=== PATIENT | female | born 2000 | race Caucasian/White ===

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

== ENCOUNTER 2018-03-18 07:29 | Emergency (ER) | payer BC ==
[2018-03-18 07:43] VITALS: BP 117/59
--- NOTE | 2018-03-18 08:29 | UC ---
Respiratory Complaint HPI - HPI Summary HPI Summary: 18 yo c/o productive cough with yellow green secretions, fatigue and muscle aches that started 1 week ago. Denies any fever. - History of Current Complaint Chief Complaint: UCRespiratory Stated Complaint: COUGH Time Seen by Provider: 03/18/18 08:22 Hx Last Menstrual Period: 03/13/18 Pain Intensity: 2 - Allergies/Home Medications Allergies/Adverse Reactions: Allergies Allergy/AdvReac Type Severity Reaction Status Date / Time amoxicillin Allergy Rash Verified 03/18/18 07:38 gluten Allergy GI Upset Verified 03/18/18 07:38 Home Medications: Home Medications Dm/PE/Acetaminophen/Doxylamine [COLD & FLU MULTI-SYMPTOM (Liquid)] 1 mis PO BEDTIME PRN 03/18/18 [History Confirmed 03/18/18] PMH/Surg Hx/FS Hx/Imm Hx - Additional Past Medical History Additional PMH: ADHD - Surgical History Surgical History: Yes Surgery Procedure, Year, and Place: Right Ovary Torsion, 2011 2013 - Family History Known Family History: Positive: Cardiac Disease - Social History Alcohol Use: None Substance Use Type: None Smoking Status (MU): Never Smoked Tobacco - Immunization History Most Recent Influenza Vaccination: Not the Season Review of Systems All Other Systems Reviewed And Are Negative: Yes Constitutional: Positive: Chills ENT: Positive: Nasal Discharge, Sinus Congestion Respiratory: Positive: Cough Physical Exam Triage Information Reviewed: Yes Appearance: Well-Appearing, No Pain Distress, Well-Nourished Vital Signs: Initial Vital Signs Temp 98.2 F 03/18/18 07:40 Pulse 72 03/18/18 07:40 Resp 16 03/18/18 07:40 BP 117/59 03/18/18 07:40 Pulse Ox 100 03/18/18 07:40 Vital Signs Reviewed: Yes Eyes: Positive: Conjunctiva Clear ENT: Positive: Hearing grossly normal, Pharynx normal, TMs normal Neck: Positive: Supple, Nontender, No Lymphadenopathy Respiratory: Positive: Chest non-tender, Lungs clear, Normal breath sounds, No respiratory distress Cardiovascular: Positive: RRR, No Murmur, Pulses Normal, Brisk Capillary Refill Abdomen Description: Positive: Nontender Musculoskeletal: Positive: Strength Intact, ROM Intact, No Edema Neurological: Positive: Alert Psychological Exam: Normal Skin Exam: Normal UC Diagnostic Evaluation - Laboratory O2 Sat by Pulse Oximetry: 100 Respiratory Course/Dx - Course Course Of Treatment: 18 yo who has cough with yellow sputum for one week with rhonci in RLL, CXR was negative, viral URI. Standby zithromax prescribed if symptoms worsen within 48 hr. continue supportive care. f/u with PCP , referral given - Differential Dx/Diagnosis Provider Diagnoses: viral syndrome Discharge - Sign-Out/Discharge Documenting (check all that apply): Patient Departure All imaging exams completed and their final reports reviewed: Yes - Discharge Plan Condition: Stable Disposition: HOME Patient Education Materials: Viral Syndrome (ED), Azithromycin (By mouth) Referrals: No Primary Care Phys,NOPCP [Primary Care Provider] - [facility] [Outside] Additional Instructions: You have been prescribed an antibiotic as standby CUrrently you appear to have a viral infection which will clear on its own. If symptoms worsen, you develop a fever and cough continues with darkened sputum start the antibiotic - Billing Disposition and Condition Condition: STABLE Disposition: Home
== END 2018-03-18 09:34 | disposition home or self-care (01) ==
LOC: UCCORT 07:29
DX: B34.9 Viral infection, unspecified (principal); Z88.0 Allergy status to penicillin
CPT/HCPCS: 71046; 99212; G0463

== ENCOUNTER 2018-08-20 11:22 | Emergency (ER) | payer BC ==
[2018-08-20 11:51] VITALS: BP 126/63
--- NOTE | 2018-08-20 12:39 | UC ---
Throat Pain/Nasal Maikel HPI - HPI Summary HPI Summary: 18 year-old female who has had cold symptoms for approximately 3 days. She is also had diarrhea approximately 4 times in the past 24 hours. No recent travel outside the [place]. - History of Current Complaint Chief Complaint: UCGeneralIllness Stated Complaint: BILAT EAR CONCERN,CONGESTION Time Seen by Provider: 08/20/18 12:18 Hx Obtained From: Patient Hx Last Menstrual Period: nuvaring ?: No Onset/Duration: Gradual Onset Severity: Mild Pain Intensity: 3 Cough: Nonproductive Associated Signs & Symptoms: Positive: Nasal Discharge - Epiglottits Risk Factors Epiglottis Risk Factors: Negative - Allergies/Home Medications Allergies/Adverse Reactions: Allergies Allergy/AdvReac Type Severity Reaction Status Date / Time amoxicillin Allergy Rash Verified 08/20/18 11:41 gluten Allergy GI Upset Verified 08/20/18 11:41 Home Medications: Home Medications D-Methorphan/PE/Acetaminophen [Daytime Cold-Flu Relief Sftgl] 2 each PO Q6H PRN 08/20/18 [History Confirmed 08/20/18] Dm/Acetaminophen/Doxylamine [Nighttime Cold-Flu Rlf Sftgl] 1 each PO BEDTIME PRN 08/20/18 [History Confirmed 08/20/18] guaiFENesin [Mucinex] 600 mg PO Q12H PRN 08/20/18 [History Confirmed 08/20/18] PMH/Surg Hx/FS Hx/Imm Hx Previously Healthy: Yes - Surgical History Surgical History: Yes Surgery Procedure, Year, and Place: Right Ovary Torsion, 2011 2013 - Family History Known Family History: Positive: Cardiac Disease - Social History Occupation: Student Lives: Dormitory/Roommates Alcohol Use: Rare Substance Use Type: None Smoking Status (MU): Never Smoked Tobacco - Immunization History Most Recent Influenza Vaccination: Not the 2016/2016 Season Review of Systems All Other Systems Reviewed And Are Negative: Yes ENT: Positive: Nasal Discharge Respiratory: Positive: Cough - Nonproductive dry cough Gastrointestinal: Positive: Diarrhea - For bouts of diarrhea in the past 24 hours. Genitourinary: Positive: Negative Is Patient Immunocompromised?: No Physical Exam Triage Information Reviewed: Yes Appearance: Well-Appearing, No Pain Distress, Well-Nourished Vital Signs: Initial Vital Signs Temp 98.2 F 08/20/18 11:46 Pulse 65 08/20/18 11:46 Resp 18 08/20/18 11:46 BP 126/63 08/20/18 11:46 Pulse Ox 100 08/20/18 11:46 Vital Signs Reviewed: Yes Eye Exam: Normal ENT Exam: Normal Neck exam: Normal Respiratory Exam: Normal Cardiovascular Exam: Normal Abdominal Exam: Normal Abdomen Description: Positive: Nontender, No Organomegaly, Soft Bowel Sounds: Positive: Present Throat Pain/Nasal Course/Dx - Course Course Of Treatment: Patient is comfortable here. Her exam is consistent with a viral illness as well as upper respiratory infection. - Differential Dx/Diagnosis Provider Diagnosis: URI (upper respiratory infection) Discharge - Sign-Out/Discharge Documenting (check all that apply): Patient Departure All imaging exams completed and their final reports reviewed: No Studies - Discharge Plan Condition: Fair Disposition: HOME Patient Education Materials: Upper Respiratory Infection (DC), Acute Diarrhea ( ED) Forms: *School Release Referrals: No Primary Care Phys,NOPCP [Primary Care Provider] - SUSANA CASTILLO [[employer], [employer], OTHER] - Additional Instructions: Increase fluids, rest, purchase loperamide and take as directed for diarrhea. Follow-up at the [facility] if continued symptoms. - Billing Disposition and Condition Condition: FAIR Disposition: Home - Attestation Statements Provider Attestation: I was available for consult. This patient was seen by the MARY. The patient was not presented to, seen by, or examined by me. -Eldon
== END 2018-08-20 12:44 | disposition home or self-care (01) ==
LOC: UCCORT 11:22
DX: J06.9 Acute upper respiratory infection, unspecified (principal); Z88.3 Allergy status to other anti-infective agents
CPT/HCPCS: 99211; G0463

== ENCOUNTER 2019-02-19 08:06 | Emergency (ER) | payer BC ==
--- OUTSIDE RECORDS SUMMARY | 2019-02-19 08:24 | XMS REPORT | Continuity of Care Document ---
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 Problems Description No Information Available Social History Type Date Description Comments Sex Unknown Tobacco Use Start: Unknown Never Smoked Cigarettes Smoking Status Reviewed: 01/09/19 Never Smoked Cigarettes ETOH Use Occasionally consumed alcohol in the past Tobacco Use Start: Unknown Patient has never smoked Exercise Type/Frequency Exercises regularly Allergies, Adverse Reactions, Alerts Active Allergies Reaction Severity Comments Date Seasonal 01/09/2019 Amoxicillin 01/09/2019 Lactose 01/09/2019 Gluten 01/09/2019 Medications Active Medications SIG Qnty Indications Ordering Date Provider Methylphenidate HCL Take 1 tab by mouth Unknown 10mg in the afternoon Tablets for breakthrough ADHD symptoms [place] Thyroid take 5 tablets by Unknown 15mg Tablets mouth daily Methylphenidate Take 1 tab by mouth Unknown Hydrochloride CD in the morning. 20mg *when refill is Capsules ER needed around end of jan refill at 30mg to test a higher dose as discussed 01/09/19 pe* Proair Respiclick Inhale 2 Puffs Unknown Every 4 Hours as 108(90Base) mcg/Act Needed For Wheeze Aerosol Or Cough Immunizations CPT Code Status Date Vaccine Lot # [id number] Given 01/09/2019 Tdap injection [id number] U-MenB Given 04/29/2018 Meningococcal B,Unspecified U-Flu Given 04/29/2018 Influenza,Unspecified U-Flu Given 05/02/2017 Influenza,Unspecified U-Menin Given 12/28/2016 Meningococcal,Unspecified U-MenB Given 10/20/2015 Meningococcal B,Unspecified U-HPV Given 06/14/2015 HPV,Unspecified U-HPV Given 02/08/2015 HPV,Unspecified U-HPV Given 12/03/2014 HPV,Unspecified [id number] Given 12/18/2012 Varicella (Chicken Pox) Vaccine U-Flu Given 02/12/2012 Influenza,Unspecified U-HepA Given 12/15/2011 Hepatitis A,Unspecified U-Menin Given 11/28/2010 Meningococcal,Unspecified U-HepA Given 11/28/2010 Hepatitis A,Unspecified U-Flu Given 04/08/2010 Influenza,Unspecified U-Flu Given 03/17/2009 Influenza,Unspecified U-Td Given 02/02/2009 Td(Adult),Unspecified 57154 Given 12/29/2002 MMR Vaccine, Live, For Subcutaneous Use U-DTaP Given 02/06/2002 DTaP,Unspecified U-Polio Given 02/06/2002 Polio,Unspecified U-Polio Given 08/01/1999 Polio,Unspecified U-DTaP Given 08/01/1999 DTaP,Unspecified U-HIB Given 05/03/1999 Hib,Unspecified 10280 Given 05/03/1999 MMR Vaccine, Live, For Subcutaneous Use [id number] Given 01/31/1999 Varicella (Chicken Pox) Vaccine U-HepB Given 1998 Hepatitis B,Unspecified U-DTaP Given 1998 DTaP,Unspecified U-HIB Given 1998 Hib,Unspecified U-Polio Given 1998 Polio,Unspecified U-HIB Given 1998 Hib,Unspecified U-DTaP Given 1998 DTaP,Unspecified U-Polio Given 1998 Polio,Unspecified U-HIB Given 1998 Hib,Unspecified U-DTaP Given 1998 DTaP,Unspecified U-HepB Given 1998 Hepatitis B,Unspecified U-HepB Given 1998 Hepatitis B,Unspecified Vital Signs Date Vital Result Comment 01/09/2019 1:56pm BP Systolic 128 mmHg BP Diastolic 78 mmHg Body Temperature 98.4 F Heart Rate 84 /min Respiratory Rate 16 /min Height 69.75 inches 5'9.75" Weight 177.00 lb BMI (Body Mass Index) 25.6 kg/m2 BSA (Body Surface Area) 1.98 m2 [place] body weight in kilograms 68 kg O2 % BldC Oximetry 98 % Results Description No Information Available Procedures Description No Information Available Medical Devices Description No Information Available Encounters Description No Information Available Assessments Date Code Description Provider 01/09/2019 Z00.00 Encounter for general adult medical examination Renata Lomeli FNP without abnormal findings 01/09/2019 F90.0 Attention-deficit hyperactivity disorder, Renata Lomeli FNP predominantly inattentive type 01/09/2019 K90.0 Celiac disease Renata Lomeli FNP 01/09/2019 E03.9 Hypothyroidism, unspecified Renata Lomeli FNP 01/09/2019 Z23 Encounter for immunization Renata Lomeli FNP Plan of Treatment Future Appointment(s):02/13/2019 1:00 pm - Renata Lomeli FNP at [facility]01/09/2019 - Renata Lomeli FNPZ00.00 Encounter for general adult medical examination without abnormal findingsComments:My General Health Recommendations:1. One of the best things you can do for your health, heart, and cholesterol is to avoid added sugar. Why? Added sugars increase triglycerides. High triglycerides increase your risk of heart disease. This means avoiding soda, juice, alcohol, plus processed carbs like bagels, muffins, pastries, donuts, cake, cookies, white bread, desserts, crackers, pretzels, chips, candy, sweet coffee creamers. 2. Eat 5 cups of colorful and/or green leafy vegetables every day. I recommend half your plate be vegetables at each meal of the day.3. Cook your meals at home most of the time, instead of eating at a restaurant or eating fast food.4. Avoid using highly unhealthy oils like vegetable oil, canola oil, soybean oil and margarine. Instead, try to cook with olive oil, avocado oil or coconut oil. 5. Drink 1/2 your body weight in ounces of plain water daily, or at least 64 ounces. 6. Attempt to get at least 10,000 steps per day. Strength training a few times per week is also ideal. Getting in a walking routine of 30+ minutes per day is excellent for your heart, bones and longevity.7. Prioritize sleep: 7-8 hours per night is best for optimum health and recovery from internal and external stress.8. Check your skin regularly for moles that are asymmetrical, have an irregular border, are changing color, are getting bigger, are bleeding or scabbing, or are bigger than 6mm.9. Recommend 2 dentist visits per year for cleanings, as well as daily flossing and an eye exam every year.Follow up:yearly peF90.0 Attention-deficit hyperactivity disorder, predominantly inattentive typeComments:Continue on current dose.When you are due for a refill, please call this office.I will renew the extended release medicine at a higher dose - 30mg - and take this until your follow up with me. We can see how it's working and if we need to back off a bit.Call sooner if you have problems. ADDENDUMReceived NCAA Medical Exemption Reporting Form from patient to fill out. I was not her original health provider nor am I the provider who diagnosed her with ADHD. Therefore, we did not discuss alternate non-banned medication options for treatment. I am her current provider and am continuing her on ADHD medications.Follow up:4-6 weeks to address dose uslhexcQ51.0 Celiac xaidfamU88.9 Hypothyroidism, [id number] Encounter for immunizationComments:Tdap given today.Repeat every 10 years. Functional Status Description No Information Available Mental Status Description No Information Available Referrals Description No Information Available
[2019-02-19 08:26] VITALS: BP 128/63
--- NOTE | 2019-02-19 08:38 | UC ---
Throat Pain/Nasal Maikel HPI - HPI Summary HPI Summary: sore throat x 2 days pain is 2 out of 10 , worse with eating better with Tylenol + nasal congestion , cough , fever, chills, body aches and fatigue - History of Current Complaint Chief Complaint: UCGeneralIllness Stated Complaint: ST,FATIGUE,ACHES Time Seen by Provider: 02/19/19 08:24 Hx Obtained From: Patient Hx Last Menstrual Period: nuvaring Onset/Duration: Gradual Onset, Lasting Days - 2, Still Present Severity: Moderate Pain Intensity: 2 Cough: Nonproductive Associated Signs & Symptoms: Positive: Nasal Discharge, Fever. Negative: Dysphagia, Wheezing, Hoarseness, Sinus Discomfort, Vomiting, Rash - Allergies/Home Medications Allergies/Adverse Reactions: Allergies Allergy/AdvReac Type Severity Reaction Status Date / Time amoxicillin Allergy Rash Verified 02/19/19 08:26 gluten Allergy GI Upset Verified 02/19/19 08:26 PMH/Surg Hx/FS Hx/Imm Hx Previously Healthy: Yes - Surgical History Surgical History: Yes Surgery Procedure, Year, and Place: Right Ovary Torsion, 2011 2013 - Family History Known Family History: Positive: Cardiac Disease - Social History Alcohol Use: Rare Substance Use Type: None Smoking Status (MU): Never Smoked Tobacco - Immunization History Most Recent Influenza Vaccination: Not the 2015/2016 Season Review of Systems All Other Systems Reviewed And Are Negative: Yes Constitutional: Positive: Fever, Chills, Fatigue Skin: Positive: Negative Eyes: Positive: Negative ENT: Positive: Sore Throat, Nasal Discharge Respiratory: Positive: Cough Cardiovascular: Positive: Negative Musculoskeletal: Positive: Myalgia Is Patient Immunocompromised?: No Physical Exam Triage Information Reviewed: Yes Appearance: Well-Appearing, No Pain Distress, Well-Nourished Vital Signs: Initial Vital Signs Temp 98.1 F 02/19/19 08:23 Pulse 69 02/19/19 08:23 Resp 15 02/19/19 08:23 BP 128/63 02/19/19 08:23 Pulse Ox 100 02/19/19 08:23 Vital Signs Reviewed: Yes Eye Exam: Normal Eyes: Positive: Conjunctiva Clear ENT: Positive: Normal ENT inspection, Hearing grossly normal, Pharyngeal erythema, Nasal drainage, TMs normal Neck: Positive: Supple, Tenderness @, Enlarged Nodes @ Respiratory: Positive: Chest non-tender, Lungs clear, Normal breath sounds Cardiovascular: Positive: RRR, No Murmur, Pulses Normal Abdominal Exam: Normal Abdomen Description: Positive: Nontender, Soft. Negative: CVA Tenderness (R), CVA Tenderness (L), Distended, Guarding Bowel Sounds: Positive: Present Throat Pain/Nasal Course/Dx - Differential Dx/Diagnosis Provider Diagnosis: Pharyngitis Discharge ED - Sign-Out/Discharge Documenting (check all that apply): Patient Departure All imaging exams completed and their final reports reviewed: No Studies - Discharge Plan Condition: Stable Disposition: HOME Patient Education Materials: Pharyngitis (ED) Forms: *School Release Referrals: No Primary Care Phys,NOPCP [Primary Care Provider] - 5 Days Additional Instructions: please call the office tomorrow for the [place] results no sports until we know the results of [place] test - Billing Disposition and Condition Condition: STABLE Disposition: Home
[2019-02-20 13:17] LABS: EBV Capsid Ag IgG Ab Positive (Negative); EBV Capsid Ag IgM Ab Negative (Negative); Epstein-Barr Nuclear Antigen Positive (Negative)
--- NOTE | 2019-02-21 07:23 | UC ---
- Progress Note Progress Note: Lab results come back from February 19, 2019 Monospot negative EBV IgM negative. EBV IgG and AG positive. These results are consistent with past infection and not present infection. Is to call patient inform them of the results. If this is early in the illness there is a chance that the Monospot and IgM will become positive for the next week if symptoms persist. Therefore patient should continue to treat symptomatically and get reevaluated if worse or not improving. Course/Dx - Diagnoses Provider Diagnoses: Pharyngitis Discharge ED - Sign-Out/Discharge Documenting (check all that apply): Patient Departure All imaging exams completed and their final reports reviewed: No Studies - Discharge Plan Condition: Stable Disposition: HOME Patient Education Materials: Pharyngitis (ED) Forms: *School Release Referrals: No Primary Care Phys,NOPCP [Primary Care Provider] - 5 Days Additional Instructions: please call the office tomorrow for the [place] results no sports until we know the results of [place] test - Billing Disposition and Condition Condition: STABLE Disposition: Home
== END 2019-02-19 08:59 | disposition home or self-care (01) ==
LOC: UCCORT 08:06
DX: J02.9 Acute pharyngitis, unspecified (principal); M79.10 Myalgia, unspecified site; R53.83 Other fatigue; Z88.1 Allergy status to other antibiotic agents; Z88.8 Allergy status to other drugs, medicaments and biological substances
CPT/HCPCS: 36415; 86308; 86664; 86665; 87651; 99211; G0463

== ENCOUNTER 2019-03-22 08:55 | Emergency (ER) | payer BC ==
[2019-03-22 09:28] VITALS: BP 112/65
--- NOTE | 2019-03-22 11:22 | UC ---
Eye Complaint HPI - HPI Summary HPI Summary: YESTERDAY GRADUAL ONSET OF RIGHT EYE REDNESS, PURULENT DRAINAGE, IRRITATION AFTER A SWIM MEET. STARTING TO FEEL IT IN HER LEFT EYE TOO. WAS WEARING CONTACTS AT THE TIME BUT TOOK THEM OUT WHEN SX STARTED. - History of Current Complaint Chief Complaint: UCEye Stated Complaint: RIGHT EYE COMPLAINT Time Seen by Provider: 03/22/19 09:55 Hx Obtained From: Patient Hx Last Menstrual Period: 02/28/19 Onset/Duration: Gradual Onset, Lasting Days - 1 DAY, Still Present Timing: Constant Severity Initially: Moderate Severity Currently: Moderate Pain Intensity: 6 Pain Scale Used: 0-10 Numeric Location of Injury: Conjunctiva Aggravating Factor(s): Blinking Alleviating Factor(s): Nothing Associated Signs And Symptoms: Positive: Drainage (Purulent). Negative: Photophobia, Vision Impairment Bilateral - Allergies/Home Medications Allergies/Adverse Reactions: Allergies Allergy/AdvReac Type Severity Reaction Status Date / Time amoxicillin Allergy Rash Verified 03/22/19 09:26 gluten Allergy GI Upset Verified 03/22/19 09:26 PMH/Surg Hx/FS Hx/Imm Hx - Additional Past Medical History Additional PMH: CELIAC Endocrine History: Hypothyroidism - Surgical History Surgical History: Yes Surgery Procedure, Year, and Place: Right Ovary Torsion, 2011 2013 - Family History Known Family History: Positive: Cardiac Disease - Social History Alcohol Use: Rare Substance Use Type: None Smoking Status (MU): Never Smoked Tobacco - Immunization History Most Recent Influenza Vaccination: Not the 2015/2016 Season Review of Systems All Other Systems Reviewed And Are Negative: Yes Constitutional: Positive: Negative Eyes: Positive: Drainage, Eye Redness Respiratory: Positive: Negative Cardiovascular: Positive: Negative Gastrointestinal: Positive: Negative Physical Exam Triage Information Reviewed: Yes Appearance: Well-Appearing, No Pain Distress, Well-Nourished Vital Signs: Initial Vital Signs Temp 98.0 F 03/22/19 09:24 Pulse 67 03/22/19 09:24 Resp 13 03/22/19 09:24 BP 112/65 03/22/19 09:24 Pulse Ox 100 03/22/19 09:24 Vital Signs Reviewed: Yes Eyes: Positive: Conjunctiva Inflamed - RIGHT > LEFT, Discharge - PURULENT RIGHT EYE, Other: - PERRL, EOMI Neck: Positive: Supple Respiratory: Positive: No respiratory distress, No accessory muscle use Cardiovascular: Positive: Pulses Normal Abdomen Description: Positive: Soft Musculoskeletal: Positive: No Edema Neurological: Positive: Alert Psychological: Positive: Age Appropriate Behavior Skin: Negative: Rashes Eye Complaint Course/Dx - Differential Dx/Diagnosis Provider Diagnosis: Bilateral conjunctivitis Discharge ED - Sign-Out/Discharge Documenting (check all that apply): Patient Departure All imaging exams completed and their final reports reviewed: No Studies - Discharge Plan Condition: Stable Disposition: HOME Prescriptions: Ciprofloxacin 0.3% OPTH.JERRI* [Cipro 0.3% Opth*] 1 drop BOTH EYES Q4H #1 btl Patient Education Materials: Conjunctivitis (ED) Referrals: [facility] [Outside] - If Needed Additional Instructions: FOLLOW-UP WITH YOUR EYE DOCTOR IF YOUR SYMPTOMS ARE NOT IMPROVING OVER THE NEXT 2 OR 3 DAYS WITH THE DROPS (IF YOU DEVELOP PAIN WITH EYE MOVEMENT, FOREIGN BODY SENSATION, PERSISTENT PURULENT DRAINAGE, SENSITIVITY TO LIGHT, FEVER, VISUAL DISTURBANCE OR ANY OTHER CONCERNING SYMPTOMS). NO CONTACT LENS USE OR EYE MAKEUP UNTIL YOUR SYMPTOMS ARE COMPLETELY RESOLVED. ALWAYS REMOVE YOUR CONTACTS LENSES AT NIGHT. CALL THE NUMBER BELOW FOR ASSISTANCE IN ESTABLISHING WITH A PCP An additional resource available to assist in finding the appropriate physician for your health care needs is the [facility] ([facility]). You may contact them by calling [phone]. - Billing Disposition and Condition Condition: STABLE Disposition: Home
== END 2019-03-22 10:16 | disposition home or self-care (01) ==
LOC: UCCORT 08:55
DX: H10.9 Unspecified conjunctivitis (principal); Z88.0 Allergy status to penicillin; Z91.018 Allergy to other foods
CPT/HCPCS: 99212; G0463

== ENCOUNTER 2019-07-14 07:43 | Emergency (ER) | payer BC ==
[2019-07-14 08:02] VITALS: BP 111/62
--- NOTE | 2019-07-14 09:32 | UC ---
Throat Pain/Nasal Maikel HPI - HPI Summary HPI Summary: Pt presents with c/o cough, nasal congestion, PND, and ST X 1 week. Pt is a student at [employer]. - History of Current Complaint Chief Complaint: UCRespiratory Stated Complaint: THROAT,COUGH Time Seen by Provider: 07/14/19 08:20 Hx Obtained From: Patient Hx Last Menstrual Period: ~06/20/19 ?: No Onset/Duration: Sudden Onset, Lasting Days, Still Present Severity: Moderate Pain Intensity: 4 Pain Scale Used: 0-10 Numeric Cough: Nonproductive Associated Signs & Symptoms: Positive: Dysphagia - Epiglottits Risk Factors Epiglottis Risk Factors: Negative - Allergies/Home Medications Allergies/Adverse Reactions: Allergies Allergy/AdvReac Type Severity Reaction Status Date / Time amoxicillin Allergy Rash Verified 07/14/19 07:58 gluten Allergy GI Upset Verified 07/14/19 07:58 Home Medications: Home Medications Methylphenidate TAB* [Ritalin TAB*] 15 mg PO DAILY 08/16/17 [History Confirmed 07/14/19] Albuterol HFA INHALER* [Ventolin HFA Inhaler*] 2 puff INH Q6H PRN 05/29/19 [ History Confirmed 07/14/19] D-Methorphan/PE/Acetaminophen [Vicks Dayquil Liquicaps] 2 cap PO Q6H PRN [History Confirmed 07/14/19] Thyroid,Pork [[place] Thyroid] 115 mcg PO DAILY 05/29/19 [History Confirmed 07/13] Azithromycin TAB* [Zithromax TAB (Z-RADHA) 250 mg #6 tabs] 2 tab PO .TODAY, THEN 1 DAILY #1 radha 07/14/19 [Rx] PMH/Surg Hx/FS Hx/Imm Hx Previously Healthy: Yes Endocrine History: Thyroid Disease Respiratory History: Asthma - Surgical History Surgical History: Yes Surgery Procedure, Year, and Place: Right Ovary Torsion, 2011 2013 - Family History Known Family History: Positive: Cardiac Disease - Social History Occupation: Student Lives: Dormitory/Roommates Alcohol Use: Rare Substance Use Type: None Smoking Status (MU): Never Smoked Tobacco Have You Smoked in the Last Year: No - Immunization History Most Recent Influenza Vaccination: Not the 2016/2016 Season Vaccination Up to Date: Yes Review of Systems All Other Systems Reviewed And Are Negative: Yes Constitutional: Positive: Chills, Fatigue Skin: Positive: Negative Eyes: Positive: Negative ENT: Positive: Sore Throat, Sinus Congestion Respiratory: Positive: Cough Cardiovascular: Positive: Negative Gastrointestinal: Positive: Negative Genitourinary: Positive: Negative Motor: Positive: Negative Neurovascular: Positive: Negative Musculoskeletal: Positive: Negative Neurological/Mental Status: Positive: Negative Psychological: Positive: Negative Physical Exam Triage Information Reviewed: Yes Appearance: Ill-Appearing Vital Signs: Initial Vital Signs Temp 98.2 F 07/14/19 07:57 Pulse 68 07/14/19 07:57 Resp 16 07/14/19 07:57 BP 111/62 07/14/19 07:57 Pulse Ox 100 07/14/19 07:57 Vital Signs Reviewed: Yes Eye Exam: Normal ENT: Positive: Pharyngeal erythema, Nasal congestion, Other - palatal petechiae Dental Exam: Normal Neck exam: Normal Respiratory Exam: Normal Cardiovascular Exam: Normal Musculoskeletal Exam: Normal Neurological Exam: Normal Psychological Exam: Normal Skin Exam: Normal Throat Pain/Nasal Course/Dx - Differential Dx/Diagnosis Differential Diagnosis/HQI/PQRI: Pharyngitis, Tonsillitis, URI Provider Diagnosis: Strep throat Discharge ED - Sign-Out/Discharge Documenting (check all that apply): Patient Departure All imaging exams completed and their final reports reviewed: No Studies - Discharge Plan Condition: Stable Disposition: HOME Prescriptions: Azithromycin TAB* [Zithromax TAB (Z-RADHA) 250 mg #6 tabs] 2 tab PO .TODAY, THEN 1 DAILY #1 radha Patient Education Materials: Strep Throat (ED), Safe Use of NSAIDs (ED) Forms: *School Release Referrals: [facility] [Outside] - If Needed No Primary Care Phys,NOPCP [Primary Care Provider] - - Billing Disposition and Condition Condition: STABLE Disposition: Home - Attestation Statements Provider Attestation: This patient was not seen by me. I was available for consult. Chart reviewed. PIETER
== END 2019-07-14 08:52 | disposition home or self-care (01) ==
LOC: UCCORT 07:43
DX: J02.0 Streptococcal pharyngitis (principal); E07.9 Disorder of thyroid, unspecified; R05 Cough; J45.909 Unspecified asthma, uncomplicated; R09.89 Other specified symptoms and signs involving the circulatory and respiratory systems; Z88.0 Allergy status to penicillin; Z91.018 Allergy to other foods; Z79.899 Other long term (current) drug therapy; Z79.890 Hormone replacement therapy
CPT/HCPCS: 87651; 99212; G0463

== ENCOUNTER 2019-08-10 14:04 | Emergency (ER) | payer BC ==
--- NOTE | 2019-08-10 14:08 | UC ---
Complaint Female HPI - HPI Summary HPI Summary: 19yo female presenting with dysuria, urinary frequency, and lower abdominal pressure x4 days. Denies hematuria. Denies flank pain. Denies fever, chills, body aches. Denies n/v. Denies abnormal discharge. States "this feels like UTIs I have had in the past." Denies known exposure to STIs but states she has had intercourse recently and the condom broke. Because of this, she states she cannot confidently rule out an STI. - History Of Current Complaint Stated Complaint: URINARY COMPLAINT Hx Obtained From: Patient Hx Last Menstrual Period: ~06/20/19 - Allergies/Home Medications Allergies/Adverse Reactions: Allergies Allergy/AdvReac Type Severity Reaction Status Date / Time amoxicillin Allergy Rash Verified 08/10/19 14:12 gluten Allergy GI Upset Verified 08/10/19 14:12 Home Medications: Home Medications Methylphenidate TAB* [Ritalin TAB*] 15 mg PO DAILY 08/16/17 [History Confirmed 08/10/19] Albuterol HFA INHALER* [Ventolin HFA Inhaler*] 2 puff INH Q6H PRN 05/29/19 [ History Confirmed 07/14/19] Thyroid,Pork [[place] Thyroid] 115 mcg PO DAILY 05/29/19 [History Confirmed 08/09] Pumpkin Seed Extract/Soy Germ [Azo Bladder Control/Go-Le] 1 cap PO PRN 08/10/19 [History] Sulfamethox/Trimethoprim DS* [Bactrim DS 800/160 TAB*] 1 tab PO BID #10 tab 09/23 [Rx] PMH/Surg Hx/FS Hx/Imm Hx - Surgical History Surgical History: Yes Surgery Procedure, Year, and Place: Right Ovary Torsion, 2011 2013 - Family History Known Family History: Positive: Cardiac Disease - Social History Alcohol Use: Rare Substance Use Type: None Smoking Status (MU): Never Smoked Tobacco Have You Smoked in the Last Year: No - Immunization History Most Recent Influenza Vaccination: Not the 2016/2016 Season Vaccination Up to Date: Yes Review of Systems All Other Systems Reviewed And Are Negative: Yes Constitutional: Positive: Negative Respiratory: Positive: Negative Cardiovascular: Positive: Negative Gastrointestinal: Positive: Abdominal Pain - lower abdominal "pressure" Genitourinary: Positive: Dysuria, Frequency, Urgency. Negative: Hematuria Musculoskeletal: Positive: Negative Neurological/Mental Status: Positive: Negative Physical Exam Triage Information Reviewed: Yes Appearance: Well-Appearing, No Pain Distress, Well-Nourished Vital Signs: Vital Signs (72 hours) 08/10/19 14:13 Temperature 98.2 F Pulse Rate 89 Respiratory 16 Rate Blood Pressure 115/68 (mmHg) O2 Sat by Pulse 99 Oximetry Lab Results 08/10/19 08/10/19 Range/Units 14:24 14:27 POC Urine Color Yellow POC Urine Clarity Clear POC Urine pH 7.0 (5-9) POC Ur Specif [place] 1.020 (1.010-1.030) POC Urine Protein Negative (Negative) POC Ur Glucose (UA) Negative (Negative) POC Urine Ketones Negative (Negative) POC Urine Blood Negative (Negative) POC Urine Nitrite Negative (Negative) POC Urine Bilirubin Negative (Negative) POC Urine Urobilinogen 0.2 (Negative) POC U Leukocyte Esteras Negative (Negative) POC Ur Test Negative (Negative) Vital Signs Reviewed: Yes Eyes: Positive: Conjunctiva Clear ENT: Positive: Hearing grossly normal Neck: Positive: Supple Respiratory: Positive: No respiratory distress, No accessory muscle use Cardiovascular Exam: Other - skin reflects adequate perfusion Abdomen Description: Positive: Nontender, Soft. Negative: CVA Tenderness (R), CVA Tenderness (L) Neurological: Positive: Alert Psychological: Positive: Age Appropriate Behavior Skin Exam: Normal - no erythema or ecchymosis Complaint Female Dx - Course Course Of Treatment: UA negative. Urine negative. I discussed with patient that testing for STI is recommended but that I would treat for UTI based on symptoms. Patient consented to testing for gonorrhea, chlamydia, and trichomonas. Patient declined concern for yeast and BV. Patient declined pelvic exam. I treated with bactrim and sent urine for culture for gonorrhea, chlamydia, and trich testing. Informed the patient that she would be notified with any positive results that warrant further treatment. Instructed to go to ED with any new or worsening symptoms. Patient voiced understanding and agreed with treatment plan. - Differential Dx/Diagnosis Differential Diagnosis/HQI/PQRI: Sexually Transmitted Disease, Urinary Tract Infection Provider Diagnosis: UTI (urinary tract infection) Discharge ED - Sign-Out/Discharge Documenting (check all that apply): Patient Departure All imaging exams completed and their final reports reviewed: No Studies - Discharge Plan Condition: Stable Disposition: HOME Prescriptions: Sulfamethox/Trimethoprim DS* [Bactrim DS 800/160 TAB*] 1 tab PO BID #10 tab Patient Education Materials: Sexually Transmitted Diseases (ED), Urinary Tract Infection in Women (ED) Referrals: No Primary Care Phys,NOPCP [Primary Care Provider] - Additional Instructions: As discussed, your urine did not show signs of infection today but you will be treated based on your symptoms. Take Bactrim for treatment of your UTI. A urine culture was also sent and you also received testing for gonorrhea, chlamydia, and trichomonas today. You will be notified with any results that require further treatment. Increase your fluid intake. Follow up with your PCP if symptoms do not resolve. Go to emergency room with any new or worsening symptoms. - Billing Disposition and Condition Condition: STABLE Disposition: Home
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
[2019-08-10 14:21] VITALS: BP 115/68
[2019-08-13 01:14] LABS: Trichomonas vag Ur RNA Female Negative (Negative)
--- NOTE | 2019-08-13 08:13 | UC ---
- Progress Note Progress Note: Please advise that urine is growing strep; she was given bactrim, which might not treat this effectively. If she still has urine symptoms, she will need a change of antibiotics. Reports allergy to amoxicillin. Has she ever taken cephalosporin such as keflex ( cephalexin)--that would cover the infection Trich is negative, gonorrhea and chlamydia still pending. Course/Dx - Diagnoses Provider Diagnoses: UTI (urinary tract infection) Discharge ED - Sign-Out/Discharge Documenting (check all that apply): Post-Discharge Follow Up All imaging exams completed and their final reports reviewed: No Studies - Discharge Plan Condition: Stable Disposition: HOME Prescriptions: Sulfamethox/Trimethoprim DS* [Bactrim DS 800/160 TAB*] 1 tab PO BID #10 tab Patient Education Materials: Sexually Transmitted Diseases (ED), Urinary Tract Infection in Women (ED) Referrals: No Primary Care Phys,NOPCP [Primary Care Provider] - Additional Instructions: As discussed, your urine did not show signs of infection today but you will be treated based on your symptoms. Take Bactrim for treatment of your UTI. A urine culture was also sent and you also received testing for gonorrhea, chlamydia, and trichomonas today. You will be notified with any results that require further treatment. Increase your fluid intake. Follow up with your PCP if symptoms do not resolve. Go to emergency room with any new or worsening symptoms. - Billing Disposition and Condition Condition: STABLE Disposition: Home
== END 2019-08-10 14:49 | disposition home or self-care (01) ==
LOC: UCCORT 14:04
DX: N39.0 Urinary tract infection, site not specified (principal); Z32.02 Encounter for pregnancy test, result negative; Z87.440 Personal history of urinary (tract) infections; Z88.0 Allergy status to penicillin; Z91.018 Allergy to other foods
CPT/HCPCS: 81003; 84702; 87077; 87086; 87491; 87591; 87661; 99212; G0463